=== PATIENT | female | born 1995 | race Caucasian/White ===

== ENCOUNTER 2018-12-17 15:46 | Emergency (ER) | payer MEDICAID, OTHER ==
[~2018-12-17] VITALS: Ht 152.4 cm; Wt 57.2 kg
[~2018-12-17 15:46] MED LIST: ACYC800T ORAL
[2018-12-17 15:52] VITALS: Ht 152.4 cm; Wt 57.2 kg
[2018-12-17 18:10] VITALS: BP 115/65; PULSE 72; RESP 18
== END 2018-12-17 18:20 | disposition home or self-care (01) ==
LOC: E/R 15:46
DX: M54.12 Radiculopathy, cervical region (principal)
CPT/HCPCS: 93005; Z7502